=== PATIENT | male | born 1980 | race Caucasian/White ===

== ENCOUNTER 2021-10-08 10:20 | Emergency (ER) | payer BC, SELFPAY ==
[2021-10-08 10:23] VITALS: BP 121/84; PULSE 67; RESP 18; TEMP 37.1; O2SAT 98; BMI 31.8
[2021-10-08 10:38] LABS: Appearance Urine CLEAR; Color Urine YELLOW; Glucose Urine UA NEG (NEG); Leukocyte Esterase Urine NEG (NEG); Nitrite Urine NEG (NEG); PH 7.5 (5.0-8.0); Specific Gravity - Urine 1.015 (1.005-1.025); Urine Blood NEG (NEG); Urine Ketones NEG (NEG); Urine Protein NEG (NEG-TRACE)
--- NOTE | 2021-10-08 11:24 | ED.GENADULT ---
HPI - General Adult General Chief complaint: General Medical Stated complaint: std test Time Seen by Provider: 10/08/21 10:26 Source: patient Mode of arrival: ambulatory History of Present Illness HPI narrative: 41-year-old male with no significant past medical history presenting to the ED complaining of itching s/p unprotected intercourse 2 weeks ago. Reports itching x4 days. Also reports recent scabies infection in his home, fearful scabies may have returned. Denies abdominal pain, flank pain, dysuria/hematuria, penile/scrotal pain/swelling, lesions, bleeding Onset (ago): day(s) Location: genitals Related Data Previous Rx's Medication Instructions Recorded clotrimazole 1 % topical ointment 1 appl topical BID 2 weeks #56.7 10/08/21 grams doxycycline hyclate 100 mg tablet 100 mg PO BID 7 days #14 tabs 10/08/21 permethrin 5 % topical cream 1 appl topical Q14D 2 doses #60 10/08/21 grams Allergies Allergy/AdvReac Type Severity Reaction Status Date / Time No Known Allergies Allergy Verified 10/08/21 10:23 Review of Systems Review of Systems: Constitutional: No Fever, No Chills,No Fatigue, No Malaise ENT/Mouth: No Ear Pain, No Nasal Congestion, No sore throat, No Rhinorrhea, No Swallowing Difficulty Eyes: No Eye Pain, No Swelling, No Redness Cardiovascular: No Chest Pain, No SOB, No Edema, No Palpitations Respiratory: No Cough, No Sputum, No Dyspnea Gastrointestinal: No Nausea, No Vomiting, No Diarrhea, No Constipation, No Abdominal pain Genitourinary: No irregular bleeding, No Dysuria, No Urinary Frequency, No Hematuria, + itching, No Flank Pain, No lesions Musculoskeletal: No joint pain, No Myalgias, No Joint Swelling Skin: No Skin Lesions, + rash Neuro: No Weakness, No Headache Yes all other systems are reviewed and are negative [facility] Past Medical History Attestation statement: The following information was validated with the patient. Social History Social History Advance Directives: No Advance Directives Information Provided: Yes Physical Exam ED Vital Signs: Vital Signs - 24 hr 10/08/21 10:23 Temperature 98.7 F Pulse Rate 67 Respiratory Rate 18 Blood Pressure 121/84 Pulse Oximetry 98 BMI result Body Mass Index 31.8 Const General: cooperative, healthy appearing and no acute distress Orientation/consciousness: patient oriented x3 Limitations: no limitations HENMT Head: Yes normal to inspection and Yes atraumatic Ears: hearing grossly normal bilaterally General nose exam: Normal external nose present Face and sinus: Yes normal facial exam Eyes General: appearance normal, both eyes and all related structures EOM: EOMs intact bilaterally Neck Neck: Yes normal visual inspection and Yes no meningeal signs Resp Effort & Inspection: normal respiratory effort and no respiratory distress Cardio Rate: regular rate Heart sounds: S1 normal heart sound present and S2 normal heart sound present GI Inspection: Yes normal to inspection Palpation (GI): Soft to palpation, nontender, no guarding and not rigid Other: No appreciable rash Male General Exam: No Genital lesions present Penis: normal penis, circumcised, not edematous, not erythematous, no pustules, no swelling, no ulcerations and No Genital lesions present Meatus: meatus normal Scrotum: scrotum normal Testes: Testes normal Skin Other: + scab rash noted to left forearm in the semi linear pattern. Scattered scabs noted to right forearm. No interphalangeal involvement Wounds: no wounds Neuro General: patient oriented x3, tone normal and no meningeal signs Gait exam (Neuro): Normal gait present Extrem General: Yes normal to inspection Course Course Course Narrative: UA not infected > discussed worrisome signs and symptoms and when to return to the emergency department. Medical Decision Making [facility] Narrative Medical decision making narrative: 41-year-old male with no significant past medical history presenting to the ED complaining of itching s/p unprotected intercourse 2 weeks ago. Also reports recent scabies infection in his home. On exam vital signs stable, exam WNL without appreciable rash/lesions/discharge or tenderness. Small scabbing linear rash noted to left forearm. Concern for STI exposure/infection vs jock itch vs recurrent scabies infection. Patient is agreeable and desires prophylactic STI testing. Will receive IM Rocephin and 1st dose of doxycycline. Will also discharge patient with clotrimazole and permethrin Medical Records Medical records reviewed: Yes I reviewed the patient's medical records. Lab Data Lab results reviewed: Yes I reviewed the patient's lab results. Labs: Lab Results 10/08/21 Range/Units 10:32 Urine Color YELLOW Urine Appearance CLEAR Urine pH 7.5 (5.0-8.0) Ur Specific Finger 1.015 (1.005-1.025) Urine Protein NEG (NEG-TRACE) MG/DL Urine Glucose (UA) NEG (NEG) MG/DL Urine Ketones NEG (NEG) MG/DL Urine Blood NEG (NEG) Urine Nitrite NEG (NEG) Ur Leukocyte Esterase NEG (NEG) Discharge Plan Discharge Clinical Impression: Sexually transmitted disease in male, Jock itch Patient Disposition: Home, Self-Care Instructions: Sexually Transmitted Diseases (ED), Jock Itch (ED) Additional Instructions: Your tested for gonorrhea and chlamydia today in the emergency department. Your also treated empirically Continue taking prescribed doxycycline. If your tests come back negative you may stop this medication. Avoid the sun while in doxycycline as causes sensitive skin Additionally we are treating you for a fungal infection in your genital area, apply clotrimazole ointment as prescribed. Due to recent scabies infection in feel that it may have returned from a urine cream can be used for scabies treatment. You should also wash all your linens in hot water You may follow-up with her primary care doctor or [facility] for further STI testing. Avoid sexual contact until you know the results of her cultures. If symptoms persist or worsen, he develops discharge, abdominal pain, fever please return to the emergency department Prescriptions: New clotrimazole 1 % ointment 1 appl topical BID 14 Days Qty: 56.7 0RF doxycycline hyclate 100 mg tablet 100 mg PO BID 7 Days Qty: 14 0RF permethrin 5 % cream 1 appl topical Q14D Qty: 60 0RF Rx Instructions: apply second treatment 14 days after first treatment if live lice remain Referrals: Physician,None [Primary Care Provider] - Interventions: ED Discharge Assessment Last Done: 10/08/21 11:37 Discharge Date/Time: 10/08/21 11:39
[2021-10-08] MEDS: cefTRIAXone sodium 500 MG, Lidocaine HCl 1 % MPF 1 ML IM (11:33)
[2021-10-08 18:07] LABS: CT PCR NOT DETECTED (Not Detect.); NG PCR NOT DETECTED (Not Detect.)
== END 2021-10-08 11:39 | disposition home or self-care (01) ==
PROVIDERS: Physician Assistant; Emergency Provider Emergency Medicine
DX: B35.6 Tinea cruris (principal); Z20.2 Contact with and (suspected) exposure to infections with a predominantly sexual mode of transmission; Z79.899 Other long term (current) drug therapy
CPT/HCPCS: 81003; 87491; 87591; 96372; 99282; 99284; J0696